=== PATIENT | male | born 1965 | race Caucasian/White ===

== ENCOUNTER → 2024-04-28 14:29 | Outpatient (REF) | payer BC, SELFPAY | LOC: RAD 14:29 | PROVIDERS: ATTENDING PHYSICIAN Specialist; FAMILY PHYSICIAN Family Medicine | DX: N20.9 Urinary calculus, unspecified (principal) | CPT/HCPCS: 74018 ==

== ENCOUNTER 2025-05-26 20:01 | Day surgery (SDC) | payer BC, SELFPAY ==
[2025-05-26] VITALS (11 sets, daily range): BP systolic 127–183; BP diastolic 77–108
[2025-05-26 13:14] LABS: Hematocrit 42.1 % (39.0-52.0); Hemoglobin 14.2 g/dL (13.0-18.0); Mean Corp Hgb Conc. 33.7 g/dL (33.0-37.0); Mean Corpuscular Volume 86.8 fL (80.0-94.0); Nucleated Red Blood Cells % 0 % (-); Platelet Count 241 10^3/uL (130-400); Red Cell Dist. Width 13.0 % (11.5-14.5)
[2025-05-26 13:19] LABS: Urine Character Clear (Clear)
[2025-05-26 13:34] LABS: ALT (SGPT) 40 U/L (0-50); AST (SGOT) 46 U/L (17-59); Albumin 5.2 g/dl (3.5-5.0); Alkaline Phosphatase 89 U/L (38-126); Blood Urea Nitrogen 14 mg/dl (9-20); Calcium 9.8 mg/dl (8.4-10.2); Carbon Dioxide 28 mmol/L (22-30); Chloride 102 mmol/L (98-107); Glucose 120 mg/dl (70-99); Lipase 82 U/L (23-300); Potassium 4.2 mmol/L (3.5-5.1); Sodium 140 mmol/L (135-145); Total Protein 8.2 g/dl (6.3-8.2); eGFR > 60.00
[2025-05-26 14:24] LABS: Urine Squamous Cell 0-2 /LPF (Few)
[2025-05-26 14:25] LABS: Urine White Cell 0-2 /HPF (0-5)
--- NOTE | 2025-05-26 16:27 | ED.GENMED ---
History of Present Illness
General
Chief Complaint: Flank Pain
Time Seen by Provider: 05/26/25 16:13
History of Present Illness
History of Present Illness:
60-year-old male presents to the emergency department for evaluation of left flank pain and vomiting that began abruptly earlier today. Was driving when the symptoms began. Feels somewhat comparable to past history of kidney stones, for which she
has needed ureteral stenting on multiple occasions. Denies any fevers or chills. Took 600 mg of ibuprofen and reports pain is in proved to a 3 out of 10. No lower abdominal pain, dysuria, or hematuria. Denies fever, chills, or sweats.
Past History
Past History
ED Past Medical History: None
ED Past Surgical History: None
Social History
Tobacco: Non-smoker
Alcohol: None
Drug: None
Living: with family
Employment: Employed
Review of Systems
Review of Systems
Allergies reviewed?: Yes
All Other Systems: ROS reviewed and negative except as documented in HPI and ROS
Phy Exam
Physical Exam
Physical Exam:
GEN: Well appearing, NAD, WDWN
HEENT: Oral mucosa moist, no scleral icterus
Cardiac: Regular rate
Lung: No respiratory distress, no tachypnea
Abdomen: Soft, grossly nontender to palpation, no CVA tenderness
MSK: No gross deformity or injuries
Skin: Good color, no pallor or jaundice, no rashes
Neuro: AO x3, moves all extremities freely
Psych: Calm, cooperative
Course
Orders/Labs/Results
Orders:
Orders
05/26/25 13:06
Complete Blood Count/With Diff Urgent
Comprehensive Metabolic Panel Urgent
Lipase Urgent
Urinalysis Reflex To Culture Urgent
Date Specimen was Collected: 05/26/25
Time Specimen was Collected: 12:59
Urine Microscopic Reflex Cult Urgent
05/26/25 16:28
CT Abd/pel Without Iv Or Oral Urgent
Comment:
Reason For Exam: L flank pain
0.9% Sodium Chloride 1000 ml [Nss] 1,000 ml IV BOLUS
Ketorolac [Toradol] 15 mg IV NOW STA
05/26/25 19:31
Fentanyl Citrate/Pf [Sublimaze] 100 mcg .ROUTE .STK-MED ONE
Lidocaine HCl/Pf [Xylocaine-Mpf 1% Vial] 50 mg .ROUTE .STK-MED ONE
Ondansetron Injectable [Zofran] 4 mg .ROUTE .STK-MED ONE
Propofol [Diprivan] 20 ml .ROUTE .STK-MED
05/26/25 19:32
Midazolam HCl [Versed] 2 mg .ROUTE .STK-MED ONE
05/26/25 19:36
CefTRIAXone [Rocephin] 1,000 mg IV NOW STA
05/26/25 19:38
Fentanyl Citrate/Pf [Sublimaze] 25 mcg IV [id number] PRN
HYDROmorphone [Dilaudid] 0.25 mg IV [id number] PRN
HYDROmorphone [Dilaudid] 0.5 mg IV PACU-Q5MPRN PRN
Ondansetron Injectable [Zofran] 4 mg IV PACU-ONCEPRN PRN
Prochlorperazine [Compazine] 5 mg IV PACU-ONCEPRN PRN
Notify MD As Directed
Notify physician if: for SDS patients with known or suspected sleep obstructive sleep apnea, monitor in the
PACU.
Notify MD for any apneic/desaturation episodes
O2 Therapy [RESP] Urgent
Titrate/Wean O2 to maintain O2 sat greater than (%): 92
Special Instructions: -Provide supplemental oxygen to achieve O2 sat of 92% or greater.
-After 15 min, may wean O2 and discontinue if patient is able to maintain O2 sat of 92%
or greater during recovery period.
If patient is a discharge home, without oxygen therapy, notify anestheiologist if
unable to maintain O2 SAT of 92% or greater on room air for MD clearance.
05/26/25 19:45
Normosol (Mult Electrolytes) [Normosol-R/Plasmalyte-A] 1,000 ml IV PER PROTOCOL
05/26/25 19:52
Admit/Transfer Patient As Directed
Co-Sign Provider:
Level of Care: Post Proc/Surg Recovery
Assign to:: Medical/Surgical
Physician / Group: Nidia Dobbs
Diagnosis: bilateral renal stones
Reason for Overnight Stay: Standard of Care
PRN Pain Medication Management As Directed
May give lesser potent ordered pain med per pt: Yes
preference::
Protocol:: Medication orders for pain may be administered in a
manner that supports deferring to patient preference
when the pt is:
- Requesting an ordered lesser potent pain medication.
Least to most potent pain medications are defined
as: acetaminophen < NSAID < tramadol < opioids
(morphine, oxycodone, hydromorphone).
- Requesting a lesser dose of the same medication IF
ORDERED.
- Requesting a less intrusive route of administration
if both routes are prescribed by the provider (PO <
IV).
05/26/25 19:53
Code Status As Directed
Resuscitation Status: Full Code
05/26/25 19:55
EKG [Electrocardiogram (*1)] Urgent
Reason for Study: PreOp
Other Reason for Exam: qtc monitoring
05/26/25 20:12
CR Abdomen - 1 View Routine
Reason For Exam: BILATERAL URETEROSCOPY, LASER LITHOTRIPSY, STONES REMOVED AND STENTS PLACED
RF Fluoroscopy, C-arm Routine
05/26/25 20:31
Stone Analysis With Image [S] Routine
Comment: l ureteral stone
05/26/25 20:52
Acetaminophen [Tylenol] 650 mg PO Q4HPRN PRN
05/26/25 20:52
Consult Urology [UROLOGY CONSULT] Routine
Consulting Provider: Tacos Humphreys
Was physician already notified: Yes
Activity As Directed
Activity Level: As Tolerated
Pneumatic Compression Sleeves As Directed
Type: Knee high
Vital Signs As Directed
Frequency: Per unit guidelines
DX Deep Vein Thrombosis Video Routine
05/26/25 21:18
Activity As Directed
Activity Level: Out of Bed-Early Mobility
Advance Diet as Tolerated As Directed
Goal Diet: Regular
05/27/25 06:00
Basic Metabolic Panel IN AM
Complete Blood Count/No Diff IN AM
Magnesium IN AM
05/27/25 18:00
Rosuvastatin Calcium [Crestor] 10 mg PO QPM
Abnormal Lab Results
05/26/25
13:06
WBC 16.2 H 10^3/uL
(4.8-10.8)
Abs Immat Gran (auto) 0.1 H 10^3/uL
(0-0.05)
Absolute Neuts (auto) 15.0 H 10^3/uL
(1.4-6.5)
Absolute Lymphs (auto) 0.6 L 10^3/uL
(1.2-3.4)
Neutrophils % 92.7 H %
(42.2-75.2)
Lymphocytes % 3.6 L %
(20.5-51.1)
Glucose 120 H mg/dl
(70-99)
Albumin 5.2 H g/dl
(3.5-5.0)
Urine Ketones 2+ A
(Negative)
Ur Occult Blood Reflex 1+ A
(Negative)
Urine RBC 7-10 A /HPF
(0-2)
Urine Bacteria (Reflex) Few A
(Negative)
05/26/25 13:06
05/26/25 13:06
Vital Signs
Initial and Last Documented VS:
Initial Vital Signs
Temp Pulse Resp BP Pulse Ox
98.2 F 62 16 183/108 98
05/26/25 12:56 05/26/25 12:56 05/26/25 12:56 05/26/25 12:56 05/26/25 12:56
Last Documented Vital Signs
Temp Pulse Resp BP Pulse Ox
97.7 F 68 15 144/80 98
05/26/25 21:43 05/26/25 21:45 05/26/25 21:45 05/26/25 21:45 05/26/25 21:45
MDM/Problems Addressed
MDM/Problems Addressed:
The patient has bilateral obstructing ureteral stones more significant on the left which is causing his symptoms. He is clinically stable, I reviewed the feels he needs urgent stenting given the bilateral involvement. Will be given 1 dose IV
antibiotics and admitted for procedure
*Pulse Oximetry
SaO2: 100
Oxygen Mode of Delivery: Room air
Patient hypoxic: no
*Critical Care Note
Total Time (30-74mins, 75-104mins- exclusive of procedures): Not Applicable
ED Attending Note
-
Portions of this chart may have been created with voice recognition software.� Occasional wrong word or��sound alike� substitutions may have occurred due to the inherent limitations of voice recognition software.
Discharge Plan
Departure
Patient Disposition: Admit
Date of Disposition: 05/26/25
Time of Disposition: 19:37
Admit to: Med/Surg
Presentation/result/management discussed w/ accepting MD/DO: Hospitalist
Discharge Problem:
Bilateral ureteral calculi
Interventions
Interventions:
*Risk Screen - Suicide Last Done: 05/26/25 12:56
*General Assessment Last Done: 05/26/25 12:56
*Neglect/Abuse Screening Last Done: 05/26/25 16:19
*ED COVID-19 Vaccine History Last Done: 05/26/25 12:56
*ED Influenza Vaccine History Last Done: 05/26/25 12:56
[facility] Fall Risk Assessment Tool Last Done: 05/26/25 16:19
*Nursing Disposition Last Done: 05/26/25 19:50
UB-Wjpm[facility]-Haizoaeiwr Assessment Last Done: 05/26/25 16:19
ED-Male Genitourinary Assessment Last Done: 05/26/25 16:19
Discharge Date and Time
Discharge Date/Time: 05/26/25 19:50
[2025-05-26] MEDS: TORADOL 15 MG IV (16:33)
[2025-05-26] MEDS: NSS 1000 IV (16:37)
--- NOTE | 2025-05-26 19:42 | HPS.HSE ---
Family Physician
-
Family Physician: Speedy Saini
Chief Complaint
-
left flank pain
History of Present Illness
Mr. Garth Dunlap is a 60 yo man with hx nephrolithiasis, HLD presents to the ER with left flank pain.
Pain started earlier this morning. Similar to prior renal stones. [place] flushed + chills earlier today. No dysuria or hematuria.
No chest pain. Patient is active and runs, without pain. NO shortness of breath. Reports intermittent gastritis/hiccups. No nausea/vomiting.
Medical History
Past Medical History
Past Medical History: Reports Other (nephrolithiasis, HLD)
Past Surgical History: Reports Urological
Social History
Tobacco: Non-smoker
Alcohol: Occasional
Family History
Family History: Not pertinent
Allergies / Home Medications
Allergies reflects when Allergies were last updated in [facility].
Home Medications with original date entered in [facility]
Allergy/Medication List:
Allergies
Allergy/AdvReac Type Severity Reaction Status Date / Time
No Known Allergies Allergy Verified 05/26/25 12:58
Home Medications
multivitamin 1 tab PO DAILY 09/13/22
Review of Systems
-
History Source: Patient
A 12 point ROS was completed and negative except as noted: Yes
Physical Exam
Vital Signs
Vital Signs
Temp Pulse Resp BP Pulse Ox
98.2 F 67 20 157/91 99
05/26/25 12:56 05/26/25 18:35 05/26/25 18:35 05/26/25 18:35 05/26/25 18:35
Physical Exam
General: No Apparent Distress
HEENT: PERRLA
Respiratory: Clear; No Wheezes
Cardiac: S1/S2 and Regular Rhythm
GI: Soft
Musculoskeletal: No Edema
Skin: Warm and Dry; No Rash
Neuro: AO x 3
Psych: Calm
Laboratory Results
-
05/26/25 13:06
05/26/25 13:06
Laboratory Results
Total Bilirubin 0.6 mg/dl (0.2-1.3) 05/26/25 13:06
AST 46 U/L (17-59) 05/26/25 13:06
ALT 40 U/L (0-50) 05/26/25 13:06
Alkaline Phosphatase 89 U/L (38-126) 05/26/25 13:06
Lipase 82 U/L (23-300) 05/26/25 13:06
Data Reviewed
-
Diagnostic Radiology: Report Reviewed by me
Lab Data: Labs Reviewed by me
Impression/Plan
-
Mr. Garth Dunlap is a 60 yo man with hx nephrolithiasis, HLD presents to the ER with left flank pain found to have obstructing renal calculi.
Triage VS: T 98.2, P 62, RR 16, BP 183/108, SpO2 98%
LABS: WBC 16.2, Hg 14.2, PLT 241, Na 140, K+ 4.2, CO2 28, Cr 1.0, Glucose 120
UA 0-[address] A/P
IMPRESSION:
Obstructing left distal ureteral calculi as described, located 5 cm superior to the left ureteropelvic junction. There is significant left perinephric edema.
2 mm right mid ureteral calculus as described. Mild dilation of the more proximal right ureter and renal pelvis, without significant perinephric edema.
Bilateral nephroliths.
Colonic diverticula with no CT evidence for diverticulitis.
Bilateral obstructing ureteral calculus
-plan is for OR this evening
-patient is low risk, medically optimized and cleared for OR
-pre-OP EKG ordered and to monitor QTc for anti-emetics
-appreciate Urology
-IV Normosol per anesthesia
Leukocytosis
-stress response, UA with 0-2 WBC
-repeat labs tomorrow
DVT PPx SCD
FULL CODE
[2025-05-26] MEDS: ROCEPHIN 1000 MG IV (19:43)
--- NOTE | 2025-05-26 19:53 | W.PN.URO.CBU ---
Today's Communication / Plan
-
to op room npo rocephin
Assessment / Plan
-
bilateral ureteral obstruction from bilateral partially obstruting stones reviewd films spoke pt family decision for surgery to op room today
Diagnosis
-
Date of Service: May 26, 2025
-
Patient Diagnosis:cristo bilatral obstructin uretral stone 2 on left and 5 mm on rt
Post Op Day:
Subjective
-
colic no fevr chills
Objective
-
Vital Signs
Temp Pulse Resp BP Pulse Ox
98.2 F 67 20 157/91 99
05/26/25 12:56 05/26/25 18:35 05/26/25 18:35 05/26/25 18:35 05/26/25 18:35
Laboratory Results
05/26/25 13:06
05/26/25 13:06
Review of Systems
-
Abdomen/GI: Abdominal Pain and Nausea
: Flank Pain
Physical Exam
-
General - well developed, well nourished, no acute distress
Chest - clear bilaterally
Abdomen - soft, non-tender, positive bowel sounds, no CVAT, no incisional pain or distention
Genitalia - normal
Rectal - normal
Skin - warm & dry with no rash
Neuro - AOx3, no motor deficits
Extremities - no clubbing, no cyanosis, no edema
Incision - clean, dry
Dressing - clean, dry, intact
Counseling
-
op room
Care Review
Data Reviewed
Discussed with: Hospitalist, Nursing and Family
--- NOTE | 2025-05-26 21:14 | W.SUR.POST ---
Surgical Immediate Post Op
Note
Pre Op Diagnosis: bilateral uretal stone with bilat obsrtruction and left renl pelvic stones
Post Op Diagnosis:
same
Procedure Performed: lleft ureteroscpy complex laser urewtral and renal calculi and basket extraction rt u scope laser basket bilateral stents
Primary Surgeon: marylouner
Secondary Surgeons:
Anesthesiakatin general:
2cc
Fluids: nss
Drains/Shunts: bilaterla jj stents
Specimens/Cultures: rt and left stones sent separately
Doppler/Duplex/Angio (Y/N):
Complications:0
Operative Findings:left mid and =rt miduretal stones with ob struction also multiple left renal pelvic calculil txd
--- NOTE | 2025-05-26 22:00 | PTCARENOTE ---
pt arrived from [facility], no c/o pain. pt able to eat snacks w/ out any issue. pt later attempted to void - 100ml of blood tinged urine. pt bladder distended. pt c/o discomfort. bladder scan for 976ml. Informed Dr. Petr portillo to placed otero
w/ urojet. Otero placed and 900ml blood tinged urine remove. pt tolerated procedure, and stated he felt better
[2025-05-27 00:14] VITALS: BP 149/86
[2025-05-27 00:45] VITALS: BP 154/91
[2025-05-27] MEDS: LIDOCAINE URO-JET 2% 1 SYRINGE TOPICAL (01:21)
[2025-05-27 04:34] VITALS: BP 145/81
[2025-05-27 07:52] LABS: Hematocrit 42.4 % (39.0-52.0); Hemoglobin 14.3 g/dL (13.0-18.0); Mean Corp Hgb Conc. 33.7 g/dL (33.0-37.0); Mean Corpuscular Volume 85.3 fL (80.0-94.0); Platelet Count 239 10^3/uL (130-400); Red Cell Dist. Width 13.1 % (11.5-14.5)
[2025-05-27 08:28] VITALS: BP 150/95
[2025-05-27 08:29] LABS: Blood Urea Nitrogen 16 mg/dl (9-20); Calcium 9.6 mg/dl (8.4-10.2); Carbon Dioxide 25 mmol/L (22-30); Chloride 102 mmol/L (98-107); Glucose 130 mg/dl (70-99); Magnesium 1.9 mg/dl (1.6-2.3); Potassium 5.4 mmol/L (3.5-5.1); Sodium 137 mmol/L (135-145); eGFR > 60.00
--- NOTE | 2025-05-27 09:40 | W.PN.URO.CBU ---
Today's Communication / Plan
-
remove otero encourage po may d/c if ok with hospitalist once we kmow about voiding trial
Assessment / Plan
-
will do voiding trial may d/c with r without foleuy once cleared by hospitalist voidng trial orfered this am
Diagnosis
-
Date of Service: May 27, 2025
-
Patient Diagnosis:
Post Op Day:
Patient Diagnosis:cristo bilatral obstructin uretral stone 2 on left and 5 mm on rt
Post Op Day: 1 had post op aur
Subjective
-
no colic hates otero
Objective
-
Vital Signs
Temp Pulse Resp BP Pulse Ox
97.9 F 65 16 150/95 98
05/27/25 08:28 05/27/25 08:28 05/27/25 08:28 05/27/25 08:28 05/27/25 08:28
Intake and Output
05/26/25 05/27/25 05/28/25
06:59 06:59 06:59
Output Total 1000 / 1000
Balance -1000 / -1000
Output:
Urine, Voided 100 / 100
Straight cath output 900 / 900
Laboratory Results
05/27/25 07:41
05/27/25 07:41
Review of Systems
-
: Difficulty Voiding
Physical Exam
-
General - well developed, well nourished, no acute distress
Chest - clear bilaterally
Abdomen - soft, non-tender, positive bowel sounds, no CVAT, no incisional pain or distention
Genitalia - normal
Rectal - normal
Skin - warm & dry with no rash
Neuro - AOx3, no motor deficits
Extremities - no clubbing, no cyanosis, no edema
Incision - clean, dry
Dressing - clean, dry, intact
Counseling
-
voiding trial
Care Review
Data Reviewed
Discussed with: Hospitalist and Nursing
[2025-05-27] MEDS: LOKELMA 10 GRAM PO (09:46)
--- NOTE | 2025-05-27 11:44 | CM ---
Patient seen bedside, initial assessment completed. Patient is a 60 yo man with hx nephrolithiasis, HLD presents to the ER with left flank pain.
Removal of kidney stones yesterday. Removed otero today
Patient resides w/ his significant other in a 2ST[place], no steps. Patient is independent in all areas. Drives. Works. No therapy hx.
PCP: Speedy Saini
Pharmacy: [facility]
Plan: Home, no needs
--- NOTE | 2025-05-27 14:19 | W.PN.HOSP.TC ---
Today's Communication/Plan
-
Cleared by urology for discharge
Assessment / Plan
Assessment / Plan
HPI: 60 yo man with hx nephrolithiasis, HLD presents to the ER with left flank pain found to have obstructing renal calculi.
CT A/P
IMPRESSION:
Obstructing left distal ureteral calculi as described, located 5 cm superior to the left ureteropelvic junction. There is significant left perinephric edema.
2 mm right mid ureteral calculus as described. Mild dilation of the more proximal right ureter and renal pelvis, without significant perinephric edema.
Bilateral nephroliths.
Colonic diverticula with no CT evidence for diverticulitis.
#Bilateral obstructing ureteral calculus
Appreciate urology input, status post cystoscopy with bilateral basket extraction and bilateral stent placement
Patient was able to void
Cleared by urology for discharge, follow-up with urology in the office in 2 weeks
#Hyperkalemia
He received Lokelma and a low potassium diet
Repeat potassium in the afternoon normal
#Leukocytosis
Likely reactive, improved without antibiotics
Urine analysis not suggestive of infection
DVT prophylaxis�SCDs
Physical Exam
General: No acute distress
HEENT: Normocephalic, Atraumatic, EOMI, MMM
Respiratory: Clear to Auscultation bilaterally
Cardiac: Normal S1/S2, Regular Rate and Rhythm
GI: Soft, Nontender, Nondistended, Normal Bowel Sounds
Extremities: No Clubbing, Cyanosis, or Edema
Neuro: Nonfocal/Grossly Intact
Psych: Calm, Cooperative
Derm: No Visible lesions
Anticipated Discharge: Today
Subjective/Interval History
-
Date of Service: May 27, 2025
Patient reports feeling well. He denies pain. Denies chest pain, flank pain, denies shortness of breath. No fever, no vomiting.
Objective Data
-
Labs:
Laboratory Results
05/27/25
07:41
WBC 12.2 H
Hgb 14.3
Hct 42.4
Plt Count 239
Sodium 137
Potassium 5.4 H D
Chloride 102
Carbon Dioxide 25
BUN 16
Creatinine 1.1
Glucose 130 H
Calcium 9.6
Vital Signs:
Vital Signs
Temp Pulse Resp BP Pulse Ox
97.9 F 65 16 150/95 98
05/27/25 08:28 05/27/25 08:28 05/27/25 08:28 05/27/25 08:28 05/27/25 08:28
I&O
05/26/25 05/27/25 05/28/25
06:59 06:59 06:59
Output Total 1000 / 1000
Balance -1000 / -1000
[2025-05-27 14:27] LABS: Potassium 4.4 mmol/L (3.5-5.1)
[2025-05-27 15:11] VITALS: BP 155/89
--- NOTE | 2025-05-27 15:46 | W.DCSUMMARY ---
Discharge Summary
Discharge Data
Date of Admission: 05/26/25
Date of Discharge: 05/27/25
-
Pending Results: No
Hospital Course
Discharge diagnosis:
Bilateral obstructing ureteral calculus
Hematuria
Hyperkalemia
Leukocytosis
Consults: Urology
CT abdomen and pelvis:
Obstructing left distal ureteral calculi as described, located 5 cm superior to the left ureteropelvic junction. There is significant left perinephric edema.
2 mm right mid ureteral calculus as described. Mild dilation of the more proximal right ureter and renal pelvis, without significant perinephric edema.
Bilateral nephroliths.
Colonic diverticula with no CT evidence for diverticulitis.
Procedures:
05/26/2025 Cystoscopy with bilateral basket extraction and bilateral stent placement with Dr. Humphreys
Hospital course:
60-year-old male with a past medical history of ureteral stones and hyperlipidemia was admitted for bilateral obstructing ureteral calculi. Patient was seen in conjunction with urology. He underwent cystoscopy with bilateral basket extraction and
bilateral stent placement with Dr. Humphreys. He did well postoperatively, and was able to void.
He did have a leukocytosis, that was likely reactive. He was afebrile.
He had mild hyperkalemia 5.4. He was treated with a low potassium diet and Lokelma. His potassium normalized.
Patient is medically stable and cleared by urology for discharge. He needs to follow-up with his PCP in 1 week, and urology in the office in 2 weeks.
Disposition: Home self-care
Discharge planning: Required 36-minute
Discharge Plan
-
Patient Disposition: Home (Routine Discharge)
Discharge Diagnosis/Procedures: Bilateral ureterolithiasis status post cystoscopy with stent placement
Condition: Good
Diet: Regular
Activity: As tolerated
Driving Restrictions: As prior to admission
Activity Restrictions/Additional Instructions:
Please follow-up with urology in the office in 2 weeks.
Referrals:
Tacos Humphreys MD [Active, Urology]
Referral Note: call DR [facility]RAM[facility] [place] [phone] REQUST NEXT PHASE TREATMENT yOU HAVE STENTS EXPECT BLOOD IN URINE FREQUNCY URGENCY FLANK DISCOMFORT ENTIRE TIME STENTS ARE IN PLACE
Speedy Saini DO [Family Provider, [facility]] - in one week
Prescriptions:
Continued
multivitamin Tablet
1 tab PO DAILY
ibuprofen [Advil] 200 mg Tablet
400 mg PO Q6HPRN PRN (Reason: mild pain)
rosuvastatin [Crestor] 10 mg Tablet
10 mg PO QPM
Discharge Orders:
Discharge Patient (As Directed); Ordered 05/27/25
Ordered By: Ricky Barrera
Discharge Date and Time
Discharge Date/Time: 05/27/25 16:32
Print Language: ANGUILLAN
== END 2025-05-27 16:32 | disposition home or self-care (01) ==
LOC: SDS 20:01
PROVIDERS: Emergency Medicine; Student in an Organized Health Care Education/Training Program; ATTENDING PHYSICIAN Family Medicine; CONSULT PHYSICIAN Specialist; EMERGENCY PHYSICIAN Emergency Medicine; FAMILY PHYSICIAN Family Medicine
DX: N20.2 Calculus of kidney with calculus of ureter (principal); N28.89 Other specified disorders of kidney and ureter; Z87.442 Personal history of urinary calculi
CPT/HCPCS: 50590; 52351; 52332; 74018; 74176; 76000; 80048; 80053; 81003; 81015; 82365; 83690; 83735; 84132; 85025; 85027; 93005; 96361; 96374; 96375; 99285